=== PATIENT | female | born 1995 | race Two or more races ===

== ENCOUNTER 2023-10-19 15:31 | Emergency (ER) | payer BC ==
[~2023-10-19] VITALS: Ht 157.5 cm; Wt 52.2 kg
[2023-10-19] MEDS ORDERED: KETOROLAC TROMETHAMINE 30 MG VIAL IM STA (17:52)
[2023-10-19 18:21] LABS: HEMATOCRIT 39.4 % (36.0-45.00); HEMOGLOBIN 13.7 g/dL (12.0-15.00); MEAN CELL VOLUME 87.8 fL (80.00-100.00); MEAN CORPUSCULAR HEMOGLOBIN 30.5 pg (27.00-32.0); MEAN CORPUSCULAR HGB CONC 34.8 g/dl (32.0-36.0); PLATELET COUNT 274 K/uL (150-450); RED BLOOD COUNT 4.49 M/uL (4.00-6.00); RED CELL DISTRIBUTION WIDTH 12.6 % (11.5-14.5)
[2023-10-19 19:02] LABS: ALBUMIN 4.3 gm/dL (3.4-5.0); BILIRUBIN TOTAL 0.57 mg/dL (0.3-1.2); CALCIUM 9.4 mg/dL (8.5-10.1); CREATININE SERUM 0.68 mg/dL (0.55-1.02); GFR 104.59; GLOBULINA 3.8 G/DL (2.4-3.5); POTASSIUM 3.85 mEq/L (3.5-5.1); TOTAL PROTEIN 8.1 gm/dL (6.4-8.2)
[2023-10-19] MEDS ORDERED: ZITHROMAX500 MG PO (21:13)
== END 2023-10-19 21:21 | disposition home or self-care (01) ==
LOC: ER 15:32
PROVIDERS: General Practice
DX: R53.81 Other malaise (principal); J06.9 Acute upper respiratory infection, unspecified; Z20.822 Contact with and (suspected) exposure to COVID-19